=== PATIENT | male | born 1975 | race Caucasian/White ===

== ENCOUNTER 2016-05-03 12:41 | Emergency (ER) | payer OTHER ==
--- NOTE | 2016-05-03 12:56 | UCPHY ---
H & P Time Seen by Provider: 05/03/16 12:50 Patient Type: New HPI/ROS: CHIEF COMPLAINT: Exposure to flu, flu-like symptoms HPI: The patient is a 40-year-old male with no significant past medical history. He reports flu-like symptoms that began yesterday. His was recently diagnosed by her doctor with influenza a yesterday. The patient denies abdominal pain or vomiting. REVIEW OF SYSTEMS: Aside from elements discussed in the HPI, a comprehensive 10-point review of systems was reviewed and is negative. PMH: None significant. SOCIAL HISTORY: . FAMILY HISTORY: Reviewed, noncontributory PHYSICAL EXAM: General:Patient is alert, in no acute distress. ENT:Eyes are normal to inspection. ENT inspection normal. Neck: Normal inspection. Full range of motion. Respiratory:No respiratory distress. Breath sounds normal bilaterally. Cardiovascular: Regular rate and rhythm. Strong peripheral pulses. Normal cap refill. Abdomen:The abdomen is nontender to palpation. There are no peritoneal signs. There are normal bowel sounds. Back: Normal to inspection. No tenderness to palpation. Skin: Normal color. No rash. Warm and dry. Extremities: Normal appearance. Full range of motion. Neuro: Oriented x3. Normal motor function. Normal sensory function. Allergies/Adverse Reactions: No Known Allergies Allergy (Unverified 05/03/16 12:55) Home Medications: Medication Instructions Recorded Oseltamivir Phosphate [Tamiflu 75 75 mg PO BID 5 Days 05/03/16 mg (RX)] MDM/Departure - [facility] ED Course/Re-evaluation: This patient presents with flu-like symptoms in the setting of spouse was diagnosed with influenza yesterday. He did not receive a flu shot. I offered him flu swab versus empiric treatment with Tamiflu and he opted for the latter. We discussed strict return precautions. - Depart Disposition: Home, Routine, Self-Care Clinical Impression: Influenza Condition: Good Instructions: Influenza (ED) Prescriptions: Oseltamivir Phosphate [Tamiflu 75 mg (RX)] 75 mg PO BID 5 Days Referrals: NONE *PRIMARY CARE P,. [Primary Care Provider] - As per Instructions - PQRS PQRS Measurement: 134: Depression screening and followup, PRIME MD-PHQ2 (12 years and older) Over the last 2 weeks, how often have you been bothered by any of the following problems? 1. Feeling down, depressed, or hopeless? 2. Little interest or pleasure in doing things? Patient answered no to both 1 and 2 130: Documentation of medications. Reviewed all patient medications, doses, route and frequency. 226: Do you smoke? No. 51: 18 years old and older with diagnosis of COPD, spirometry performance. Spirometry not performed; equipment not available. Patient has no history of COPD 52: 18 years old and older with COPD and symptoms of COPD or FEV1<60% predicted prescribed a B Agonist. Spirometry not performed; equipment not available.
[2016-05-03 13:12] VITALS: BP 135/74; PULSE 72; RESP 16; TEMP 98.8; O2SAT 95
== END 2016-05-03 13:05 | disposition home or self-care (01) ==
LOC: CED 12:41
DX: J11.1 Influenza due to unidentified influenza virus with other respiratory manifestations (principal)
CPT/HCPCS: 99204-PO; G0463-PO